=== PATIENT | male | born 1990 | race Caucasian/White ===

== ENCOUNTER 2021-01-22 15:59 | Emergency (ER) | payer SELFPAY ==
[~2021-01-22] VITALS: Ht 182.9 cm; Wt 108.9 kg
[2021-01-22] MEDS ORDERED: MOBIC15 MG PO (17:47)
--- NOTE | 2021-01-23 18:18 | EKG ---
[facility] [address] [facility] [place] [address] Signed Normal sinus rhythm Normal ECG No previous ECGs available Confirmed by JESSICA MONTES DE OCA MD [id number] on 01/23/2021 6:18:33 PM Electronically Signed By: JESSICA MONTES DE OCA MD 01/[id number]/[id number] PATIENT NAME: SANDRO CUELLAR Electrocardiogram DATE OF : 89 PHYSICIAN: JESSICA MONTES DE OCA MD REPORT #: [id number] REPORT IS CONFIDENTIAL AND NOT TO BE RELEASED WITHOUT AUTHORIZATION
== END 2021-01-22 17:53 | disposition home or self-care (01) ==
LOC: ED 15:59
DX: M94.0 Chondrocostal junction syndrome [Tietze] (principal)
CPT/HCPCS: 71046; 93005; 93010; 99285-25

== ENCOUNTER 2024-12-31 10:32 | Emergency (ER) | payer OTHER ==
[~2024-12-31] VITALS: Ht 182.9 cm; Wt 108.3 kg
[~2024-12-31 10:32] MED LIST: MOBIC15 MG PO
[2024-12-31 11:06] LABS: BASOPHILS 0.3 % (0.2-1.2); EOSINOPHILS 1.0 % (0.8-7.0); LYMPHOCYTES 23.9 % (21.8-53.1); MCH 28.8 PG (25.7-32.2); MCHC 34.1 g/dL (32.3-36.5); MCV 84.6 fL (79.0-92.2); MONOCYTES 8.3 % (5.3-12.2); NEUTROPHILS 66.2 % (34.0-67.9); RBC 5.20 M/uL (4.63-6.08)
[2024-12-31 11:23] LABS: ALCOHOL, MEDICAL 4.0 ng/dL (<3); ALT (SGPT) 60.0 U/L (14-59); AST (SGOT) 39.0 U/L (15-37); GLOMERULAR FILTRATION RATE,EST 97.0 mL/min (>60); PROTEIN, TOTAL 7.2 g/dL (6.4-8.2); UREA NITROGEN 12.0 mg/dL (7-18)
[2024-12-31] MEDS ORDERED: ADVIL200 M1 PO (12:00)
[2024-12-31] MEDS ORDERED: HYDROCODON-ACE1 EA10 PO (12:24)
[2024-12-31] MEDS ORDERED: AMOX TR-K CLV1 EAC1 PO (12:24)
[2024-12-31 12:41] VITALS: BP 121/74
== END 2024-12-31 12:41 | disposition home or self-care (01) ==
LOC: ED 10:32
PROVIDERS: Emergency Medicine
DX: S02.32XA Fracture of orbital floor, left side, initial encounter for closed fracture (principal); S02.40DA Maxillary fracture, left side, initial encounter for closed fracture; Y04.8XXA Assault by other bodily force, initial encounter
CPT/HCPCS: 36415; 70450; 70486; 71260; 72125; 74177; 80053; 85025; 99284-25; G0480; Q9967